=== PATIENT | female | born 1945 | race Caucasian/White ===

== ENCOUNTER → 2018-08-25 13:25 | Outpatient (CLI) | payer MEDICARE, OTHER, SELFPAY | PROVIDERS: PCP Internal Medicine; Visit Provider Internal Medicine | DX: M85.852 Other specified disorders of bone density and structure, left thigh (principal); Z78.0 Asymptomatic menopausal state; E11.9 Type 2 diabetes mellitus without complications; E07.9 Disorder of thyroid, unspecified; N28.9 Disorder of kidney and ureter, unspecified; Z85.3 Personal history of malignant neoplasm of breast; Z82.62 Family history of osteoporosis | CPT/HCPCS: 77080 ==

== ENCOUNTER → 2018-10-10 09:13 | Outpatient (CLI) | payer MEDICARE, OTHER, SELFPAY ==
[2018-10-10 10:22] LABS: Alanine Aminotransferase 22 IU/L (9-52); Aspartate Aminotransferase 27 IU/L (14-36); Cholesterol 137 mg/dL (140-199); HDL Cholesterol 63 mg/dL (40-60); LDL Cholesterol Calculated 62 mg/dL (<100); Triglycerides 59 mg/dL (35-150)
[2018-10-10 10:59] LABS: TSH w/ Reflex to FT4 0.22 uIU/mL (0.47-4.68)
[2018-10-10 11:41] LABS: Free T4, Direct Thyroxine 1.05 ng/dL (0.78-2.19)
== END ==
PROVIDERS: PCP Internal Medicine; Visit Provider Internal Medicine
DX: E78.2 Mixed hyperlipidemia (principal); R19.7 Diarrhea, unspecified; E03.9 Hypothyroidism, unspecified
CPT/HCPCS: 36415; 80061; 84439; 84443; 84450; 84460

== ENCOUNTER → 2018-11-12 16:25 | Outpatient (CLI) | payer MEDICARE, OTHER, SELFPAY | PROVIDERS: PCP Internal Medicine; Visit Provider Internal Medicine | DX: R19.7 Diarrhea, unspecified (principal) | CPT/HCPCS: 87177 ==

== ENCOUNTER → 2019-01-29 18:28 | Outpatient (CLI) | payer MEDICARE, OTHER, SELFPAY ==
--- NOTE | 2019-01-29 | DI.MRI.S_ITS ---
PROCEDURE: MR NECK WO CON INDICATIONS: UNSPECIFIED LACK OF COORDINATION TECHNIQUE: Noncontrast axial, sagittal and coronal T1 spin echo and STIR through the neck. COMPARISON: [facility], CT, PE STUDY (CTA CHEST), 10/21/2015, 13:46. [facility], MR, MR HEAD/BRAIN WO CON, 01/29/2019, 18:45. [facility], CT, HEAD WITHOUT CONTRAST, 11/25/2016, 11:32. FINDINGS: Image quality: There are motion artifacts degrading images. Soft tissue: No mass or cervical lymphadenopathy. Parotid glands and submandibular glands are normal. Thyroid gland is normal. Vessels: Carotid arteries are normal in caliber and demonstrate flow void. There is reversal of flow of the right jugular vein which is slightly prominent in caliber. Bones: Mild increased T2 marrow signal in C5, C6, C7 and T3 are most likely degenerative in nature. There is degenerative disc disease, severe at C5-C6 and C6-C7 causing severe central canal stenosis and indentation of the cervical cord. Degenerative disc disease is at T3-T4 causing moderate central canal stenosis. Sinuses: Sinuses and mastoids are clear. IMPRESSION: 1. No mass or cervical lymphadenopathy. 2. Severe degenerative disc disease at C5-C6 and C6-C7 causing severe central canal stenosis and indentation of the cervical cord. There is also moderate degenerative disc disease at T3-T4. MRI of the cervical spine and thoracic spine are suggested for followup evaluation. 3. There is reversal flow of the right jugular vein, uncertain etiology. Doppler ultrasound is recommended for further evaluation. Dictated by: Debbi De Souza M.D. on 01/30/2019 at 8:43 Approved by: Debbi De Souza M.D. on 01/30/2019 at 10:27
--- NOTE | 2019-01-29 18:33 | DI.MRI.S_ITS ---
PROCEDURE: MR HEAD/BRAIN WO CON INDICATIONS: UNSPECIFIED LACK OF CORDINATION TECHNIQUE: Non-contrast axial T1 spin echo, axial T2 fast spin echo, sagittal and axial FLAIR, coronal T2 fast spin echo, axial gradient echo, axial diffusion and ADC through the brain. COMPARISON: [facility] , MR, BRAIN W&W/O CONTRAST, 09/07/2006, 16:18. [facility], CT, HEAD WITHOUT CONTRAST, 11/25/2016, 11:32. [facility], MR, MR ORBITS FACE NECK WO CON, 01/29/2019, 19:02. FINDINGS: Image quality: Excellent. CSF spaces: Ventricles appear symmetric in size and shape. Basal cisterns are patent. No extra-axial fluid collections. Brain: No intracranial bleeds or mass effects. There is mild cerebral volume loss for age. There are foci of T2/FLAIR hyperintensity in periventricular and deep white matter , compatible with chronic small vessel ischemic changes. Brainstem appears normal. Diffusion-weighted images show no acute ischemic insults. No chronic ischemic insults. Normal intravascular flow voids are present. Skull and face: Calvarial bone marrow is normal in signal. Orbits are normal. Sinuses: Sinuses and mastoids are clear. IMPRESSION: 1. No acute intracranial abnormalities. 2. Foci of T2/FLAIR hyperintensity in periventricular and deep white matter, compatible with chronic small vessel ischemic changes. The differential diagnosis is demyelinating process. Recommend clinical correlation. 3. Mild age-appropriate cerebral volume loss. Dictated by: Debbi De Souza M.D. on 01/30/2019 at 8:41 Approved by: Debbi De Souza M.D. on 01/30/2019 at 10:12
== END ==
PROVIDERS: PCP Internal Medicine; Visit Provider Internal Medicine
DX: M54.2 Cervicalgia (principal); R27.9 Unspecified lack of coordination; M50.322 Other cervical disc degeneration at C5-C6 level; M51.34 Other intervertebral disc degeneration, thoracic region; M48.02 Spinal stenosis, cervical region
CPT/HCPCS: 70540; 70551

== ENCOUNTER → 2019-10-16 13:45 | Outpatient (CLI) | payer MEDICARE, OTHER, SELFPAY ==
[2019-10-16 14:57] LABS: Add Manual Diff / Slide Review NO; Basophils Absolute Auto 0 /uL (0-100); Basophils Percent Auto 0.4 % (0-2); Eosinophils Absolute Auto 100 /uL (0-450); Eosinophils Percent Auto 2.3 % (2-4); Hematocrit 37.1 % (36-46); Hemoglobin 12.9 g/dL (12.0-16.0); Lymphocytes Absolute Auto 1200 /uL (1100-4500); Lymphocytes Percent Auto 26.8 % (25-40); Mean Corpuscular HGB Conc 34.9 % (30-36); Mean Corpuscular Hemoglobin 32.7 PG (26-34); Mean Corpuscular Volume 93.5 fL (80-100); Monocytes Absolute Auto 400 /uL (0-900); Monocytes Percent Auto 9.5 % (3-14); Neutrophils Absolute Auto 2700 /uL (1500-7000); Platelet Count 271 X10^3/uL (150-400); Red Blood Cell Count 3.96 X10^6/uL (4.0-5.2); Red Cell Distribution Width 12.8 % (11.6-14.8); White Blood Cell Count 4.4 X10^3/uL (4.5-11.0)
== END ==
PROVIDERS: PCP Internal Medicine; Referring Provider Internal Medicine; Visit Provider Internal Medicine
DX: R53.83 Other fatigue (principal)
CPT/HCPCS: 36415; 85025

== ENCOUNTER → 2019-10-20 14:36 | Outpatient (CLI) | payer MEDICARE, OTHER, SELFPAY ==
--- NOTE | 2019-10-20 | DI.MRI.S_ITS ---
PROCEDURE: MR CERVICAL SPINE WO CON INDICATIONS: Spinal stenosis, cervical region TECHNIQUE: Noncontrast sagittal T1 spin echo and T2 fast spin echo, sagittal STIR, foraminal oblique sagittal T2 fast spin echo, and axial gradient echo or T2 fast spin echo through the cervical spine. COMPARISON: None. FINDINGS: Image quality: Excellent. Alignment and Curvature: Mild degenerative anterolisthesis of C5 on C6 and of C4 on C5. Bone Marrow: Marrow demonstrates normal overall signal. Spinal Cord: There is subtle cord signal abnormality at C5-C6 in a region with significant canal stenosis. No cerebellar tonsillar herniation. Paraspinous Soft Tissues: No paravertebral masses. Prevertebral soft tissues are normal in thickness. C2-C3: No canal stenosis or foraminal stenosis. C3-C4: No canal stenosis. Marked bilateral facet joint hypertrophy. Moderate to severe bilateral foraminal narrowing with flattening deformity on the bilateral exiting C4 nerve roots. C4-C5: No canal stenosis. Mild bilateral uncovertebral joint hypertrophy. Bilateral facet hypertrophy, marked on the left. Moderate right foraminal narrowing with flattening deformity on the exiting right C5 nerve root. Severe left foraminal narrowing with impingement on the left C5 nerve root. C5-C6: Severe chronic disc height loss. Diffuse posterior disc osteophyte complex, eccentric to the right with large uncovertebral joint osteophytes bilaterally. Severe canal stenosis and marked right lateral recess stenosis. Bilateral facet hypertrophy. Marked bilateral foraminal narrowing with bilateral C6 nerve root impingement. C6-C7: Severe chronic disc at loss. Diffuse posterior disc osteophyte complex with severe central canal stenosis. Bilateral uncovertebral joint hypertrophy. Bilateral facet hypertrophy. Severe bilateral foraminal narrowing with bilateral C7 nerve root impingement. C7-T1: No central canal stenosis. Bilateral facet hypertrophy. Moderate right foraminal narrowing with flattening deformity on the exiting right T1 nerve root. IMPRESSION: 1. Extensive diffuse spondylitic change. 2. At C5-C6, there is severe central canal stenosis and marked right lateral recess stenosis. There is associated cord signal abnormality. 3. At C6-C7, there is severe central canal stenosis. 4. Significant multilevel foraminal narrowing as described above, extending from C3-C4 through C7-T1. Findings include moderate to severe bilateral foraminal narrowing at C3-C4, severe left foraminal narrowing at C4-C5, marked bilateral foraminal narrowing at C5-C6, and severe bilateral foraminal narrowing at C6-C7. Dictated by: Hema Blanton M.D. on 10/22/2019 at 7:43 Approved by: Hema Blanton M.D. on 10/22/2019 at 7:56
== END ==
PROVIDERS: PCP Internal Medicine; Referring Provider Internal Medicine; Visit Provider Internal Medicine
DX: M48.02 Spinal stenosis, cervical region (principal); M47.812 Spondylosis without myelopathy or radiculopathy, cervical region
CPT/HCPCS: 72141

== ENCOUNTER → 2020-01-16 17:33 | Outpatient (CLI) | payer MEDICARE, OTHER, SELFPAY ==
--- NOTE | 2020-01-16 | DI.MRI.S_ITS ---
PROCEDURE: MR LUMBAR SPINE WO CON INDICATIONS: RIGHT LEG WEAKNESS TECHNIQUE: Noncontrast sagittal T1 spin echo and T2 fast echo, sagittal STIR, axial T1 and T2 fast spin echo through the lumbar spine. In cases with scoliosis, additional coronal T2 fast spin echo may be performed. COMPARISON: None. FINDINGS: Image quality: Excellent. Alignment and Curvature: Levoscoliosis noted. Bone Marrow: Multilevel degenerative endplate sclerosis and spurring. Diffuse facet arthropathy. No fracture. Multiple presumed vertebral body hemangiomas. Spinal Cord: Conus medullaris terminates at the L1 level. Visualized cord demonstrates normal signal and size. Paraspinous Soft Tissues: Subcentimeter renal foci, statistically cysts, although technically too small to characterize accurately and therefore nonspecific. There is nonspecific, dependent posterior subcutaneous soft tissue edema from level of L1-sacrum. L1-L2: No canal stenosis. Mild bilateral left greater than right foraminal narrowing. Partial effacement of both lateral recesses with bilaterally symmetric appearance. . L2-L3: No canal stenosis. Partial effacement of both lateral recesses with bilaterally symmetric appearance. No definite left foraminal stenosis. Mild right foraminal narrowing. L3-L4: Dorsal epidural lipomatosis, and mild canal narrowing. Partial effacement of both lateral recesses with bilaterally symmetric appearance. Mild left foraminal stenosis. Minimal right foraminal narrowing. L4-L5: Mild canal narrowing. Partial effacement of both lateral recesses with asymmetric appearance, left greater than right. Moderate left foraminal narrowing with nerve root compression. Mild right foraminal stenosis. L5-S1: Mild canal narrowing. Partial effacement of both lateral recesses with bilaterally symmetric appearance. Mild right foraminal narrowing with nerve root compression . Moderate to severe left foraminal stenosis with nerve root compression. IMPRESSION: Multilevel lumbar spondylosis, and levoscoliosis. Diffuse facet arthropathy Multilevel canal narrowing as above without high-grade stenosis. Diffuse, bilateral foraminal stenosis as detailed above by spinal level. Dictated by: Mike Henderson M.D. on 01/17/2020 at 8:11 Approved by: Mike Henderson M.D. on 01/17/2020 at 8:21
== END ==
PROVIDERS: PCP Internal Medicine; Referring Provider Physician Assistant
DX: R29.898 Other symptoms and signs involving the musculoskeletal system (principal); M47.816 Spondylosis without myelopathy or radiculopathy, lumbar region; M48.061 Spinal stenosis, lumbar region without neurogenic claudication; M48.07 Spinal stenosis, lumbosacral region; M41.9 Scoliosis, unspecified
CPT/HCPCS: 72148

== ENCOUNTER → 2020-07-16 13:06 | Outpatient (CLI) | payer MEDICARE, OTHER, SELFPAY ==
--- NOTE | 2020-07-16 13:09 | DI.RAD.S_ITS ---
PROCEDURE: FL BARIUM SWALLOW W SPEECH INDICATIONS: Dysphagia, unspecified COMPARISON: None. TECHNIQUE: Examination was conducted in conjunction with speech pathology per standard protocol. In the lateral projection, filming was performed of the patient swallowing. AP projection filming may also be performed with patient swallowing. COMPARISON: FINDINGS: Function: The oral preparatory phase appears normal, with proper containment. The subsequent oral propulsive phase, pharyngeal phase, and esophageal phase of swallowing also appear normal with all proffered substances. No laryngotracheal penetration or aspiration. No pathologic vallecular pooling. Limited evaluation of the esophagus demonstrated mild esophageal dysmotility with sporadic for forward motion of swallowed material. 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 No cervical esophageal webs. No Zenker's diverticulum. No strictures. IMPRESSION: 1. Small cricopharyngeal bar. 2. Mild esophageal dysmotility. Dictated by: Jenniffer Hollins MD, PhD on 07/16/2020 at 13:56 Approved by: Jenniffer Hollins MD, PhD on 07/16/2020 at 13:58
--- NOTE | 2020-07-17 13:34 | ST.SWALLOW ---
Visit Care Team Role Provider Type Jillian Jin MD Primary Care Provider Physician Specialty: Internal Medicine Address: [address] [place] [address], [id number] Email: [email or web address] Tran Meza PA-C Attending Provider Non-Staff Referring Provider Specialty: Medical Address: [address] [place] [address], [address], [place], [address] Email: Modified Barium Swallow Study FILAMENT TESTER Modified Barium Swallow Study Start: 07/16/20 16:43 Freq: Status: Active Protocol: Document 07/16/20 12:02 LNK (Rec: 07/17/20 12:28 LNK [email or web address]) Modified Barium Swallow Study Total Time Visit Start Time 13:30 Visit Stop Time 14:00 Total Visit Minutes [address] Alaniz, [facility] Neurology Reason for Referral dysphagia Setting Setting Outpatient Care Patient Information Identification Type Name,Date of Patient History Pt is a75 year old female seen for swallowing evaluation following C5-C7 ACDF surgery on 04/30/20. Pt reported that initially, following her surgery she was very swollen in the pharynx, causing swallowing problems and needed steroids to reduce the inflammation. She added that her swallowing has improved significantly; however, she reports a continuous pressure on/in her throat near the sternal notch and her scar. She describes the pressure as though there was something stuck in there. Additionally , she reported a sense of globus mid-chest after eating. She denies choking or coughing during meals. An MBSS was recommended to r/o oropharyngeal dysphagia. Subjective Observations Pt was seated in the fluoroscopy chair. Instructions and procedures were described for the pt who agreed to proceed. Patient Positioning Position View Lat-A/P Imaging Lateral View Textures Administered Trials Presented Thin Liquid via Spoon,Thin Liquid via Cup,Pudding Thick Liquid via Spoon,Regular Textures,Barium Tablet Oral Phase Source: MBSIMP (TM) (C) Bolus Specific Scoring Grid Lip Closure WFL Tongue Control During Bolus Hold WFL Bolus Prep/Mastication WFL Bolus Transport/Lingual Motion WFL A/P Lingual Propulsion Delay No Oral Residue WFL Residue Clearing WFL Nasal Regurgitation No Additional Oral Phase Observations OM examination indicated structures to be WFL and adequate for mastication. Pt reported that she usually takes small bites and chews her foods well before swallowing. Pharyngeal Phase Source: MBSIMP (TM) (C) Bolus Specific Scoring Grid Delayed Initiation of Pharyngeal Swallow No Soft Palate Elevation WFL Tongue Base Strength/Range of Motion Mild Impairment Residue Along the Tongue Base Yes Clearance of Residue Along Tongue Base WFL Laryngeal Elevation WFL Anterior Hyoid Movement WFL Epiglottic Range of Motion WFL Vallecular Residue Yes: Cleared with subsequent swallows Clearance of Vallecular Residue Mild Impairment Laryngeal Vestibular Closure WFL Pharyngeal Stripping Wave WFL Posterior Pharyngeal Wall Residue Yes Clearance of Posterior Pharyngeal Wall WFL Residue Upper Esophageal Sphincter Opening WFL Residue in the Pyriform Sinuses No Esophageal Clearance Upright Position Mild Impairment Pharyngoesophageal Backflow Observed No: Esophageal back-flow was observed Additional Pharyngeal Phase Observations Overall, the pt presented with a prompt swallow response, adequate hyolaryngeal elevation, good epiglottic inversion and airway protection. There was reduced linguapharyngeal contact resulting in valecullar pooling consistent across all trials. Subsequent swallows were needed to clear the valecullar residue. Otherwise, contraction of the posterior pharyngeal wall was WFL. There was no airway penetration or aspiration of the contrast observed. During the MBSS, the pt remarked that she felt there was something stuck ( pointing near sternum) and at mid-chest. AP view was then performed. A/P View Textures Administered Trials Presented Thin Liquid via Spoon, Mechanical Soft Textures A/P View Observations Esophageal Function Slowed Clearing,Poor Motility, Reverse Peristalsis Esophageal Clearance Upright Position Mild Impairment Additional Observations In screening the esophagus, it was noted that there was mild esophageal dysmotility with sporadic reverse peristalsis of swallowed material. A small CP bar was noted. Esophageal Observations Esophageal Function There was esophageal dysmotility observed with reverse movement of the swallowed material. Clinical Impressions Dysphagia Type esophageal dysphagia Findings Pt's MBSS indicated no oropharyngeal dysphagia. Recommend GI consult to follow up on esophageal observations . This dysmotility may contribute to pt's sense of something stuck in her throat as well as her reported a sense of globus mid chest after eating. Patient Appropriate for Therapy No Recommendations Treatment Plan Recommended Referrals Primary Care Physician,GI Consult Compensatory Strategies Recommendations Small Bites and Sips,Alternate Liquids/Solids
--- NOTE | 2020-07-22 17:05 | ST.IPDYTX ---
Visit Care Team Role Provider Type Jillian Jin MD Primary Care Provider Physician Specialty: Internal Medicine Address: [address] [place] [address], [id number] Email: [email or web address] Tran Meza PA-C Attending Provider Non-Staff Referring Provider Specialty: Medical Address: [address] [place] [address], [address], [place], [address] Email: GLASS SMOOTHER Dysphagia Treatment GLASS SMOOTHER Dysphagia Treatment Start: 07/22/20 16:50 Freq: Status: Active Protocol: Document 07/22/20 16:51 LNK (Rec: 07/22/20 17:04 LNK [email or web address]) Dysphagia Treatment Session Time Visit Start Time 15:30 Visit Stop Time 16:30 Total Visit Minutes 60 Setting Assessment Location Outpatient Care Visit Type Note Type Treatment Note Next Note Type Next Note Type Discharge Summary Patient Information Identification Type Name,Picture Treatment Treatment Activities No PO trials for therapy. Reviewed MBSS with pt. Reported to pt that her swallow study was WFL for her age. No obvious dysphagia observed ( See MBSS report dated 06/18/20) . Pt was able to view each swallow and the A-P view as well. Discussed my recommendation for GI referral . Pt requested that I send a copy of her report to her oncologist Dr. Bairon Solitario at the [facility]. Pt indicated that her questions had been answered satisfactorily. Pt does not need to return for ST services . Will discharge. Treatment Plan Appropriate for Continued Therapy No Therapy Recommendations Discharge Referrals/Other Recommended Referrals GI Consult
--- NOTE | 2020-07-22 17:08 | ST.IPDYTX ---
Visit Care Team Role Provider Type Jillian Jin MD Primary Care Provider Physician Specialty: Internal Medicine Address: [address] [place] [address], [address] Email: [email or web address] Tran Meza PA-C Attending Provider Non-Staff Referring Provider Specialty: Medical Address: [address] [place] [address], [address], [place], [address] Email: CERTIFIED BENCH JEWELER TECHNICIAN Dysphagia Treatment CERTIFIED BENCH JEWELER TECHNICIAN Dysphagia Treatment Start: 07/22/20 16:50 Freq: Status: Active Protocol: Document 07/22/20 16:51 LNK (Rec: 07/22/20 17:04 LNK [email or web address]) Dysphagia Treatment Session Time Visit Start Time 15:30 Visit Stop Time 16:30 Total Visit Minutes 60 Visit Information Plan of Care Dates 07/22/20-07/24/20 Setting Assessment Location Outpatient Care Visit Type Note Type Treatment Note Next Note Type Next Note Type Discharge Summary Patient Information Identification Type Name,Picture Treatment Treatment Activities No PO trials for therapy. Reviewed MBSS with pt. Reported to pt that her swallow study was WFL for her age. No obvious dysphagia observed ( See MBSS report dated 06/18/20) . Pt was able to view each swallow and the A-P view as well. Discussed my recommendation for GI referral . Pt requested that I send a copy of her report to her oncologist Dr. Bairon Solitario at the [facility]. Pt indicated that her questions had been answered satisfactorily. Pt does not need to return for ST services . Will discharge. Treatment Plan Appropriate for Continued Therapy No Therapy Recommendations Discharge Referrals/Other Recommended Referrals GI Consult
== END ==
PROVIDERS: PCP Internal Medicine; Referring Provider Physician Assistant; Visit Provider Physician Assistant
DX: R13.10 Dysphagia, unspecified (principal); K22.4 Dyskinesia of esophagus
CPT/HCPCS: 74230; 92611

== ENCOUNTER 2020-07-22 15:30 | Outpatient (RCR) | payer MEDICARE, OTHER, SELFPAY ==
--- NOTE | 2020-06-16 14:03 | ST.OPIE ---
Visit Care Team Role Provider Type Jillian Jin MD Primary Care Provider Physician Specialty: Internal Medicine Address: [address] [place] [address], [id number] Email: [email or web address] Nahed Rojas PA-C Attending Provider Non-Staff Referring Provider Specialty: Neurology Address: [address] [place], [address] Email: Speech-Language Pathology Initial Evaluation SLD INCLUSION TEACHER Clinical Swallow Evaluation Start: 06/16/20 11:32 Freq: Status: Active Protocol: Document 06/16/20 11:32 LNK (Rec: 06/16/20 14:02 LNK [email or web address]) Clinical Swallow Evaluation Session Time Visit Start Time 11:30 Visit Stop Time 12:30 Total Visit Minutes 60 Visit Information Visit Number 1 Referral Referring Provider Jillian Jin MD Setting Assessment Location Outpatient Care Visit Type Note Type Initial evaluation Patient Information Identification Type Name,Picture History Pt is a75 year old female seen for swallowing evaluation following C5-C7 ACDF surgery on 04/30/20. Pt reported that initially, following her surgery she was very swollen in the pharynx, causing swallowing problems and needed steroids to reduce the inflammation. She added that her swallowing has improved significantly; however, she reports a continuous pressure on/in her throat near the sternal notch and her scar. She describes the pressure as though there was something stuck in there. Reported by Patient Location Neck Other Symptoms Food gets stuck Current Diet Regular,Thin liquids Objective Assessment Mental Status Alert,Responsive,Cooperative Oral Integrity WFL Dentition Within normal limits Lip Function Within normal limits Observation of Lips at Rest Symmetrical Lip Retraction Within normal limits Tongue Function Within normal limits Jaw Function Within normal limits Food and Liquid Trials Oral Phase Comments No PO trials as pt described her symptoms as pharyngeal. OM examination indicated structures to be WFL and adequate for mastication. Pt reported that she usually takes small bites and chews her foods well before swallowing. Pharyngeal Phase Comments Hyolaryngeal elevation for dry swallow was adequate with good movement of the hyoid. Pt 's cough and throat clear were WFL. Pt reported that she continues to need to use her neck brace. Additionally, she noted that when she has her neck brace on, she has more difficulty with her swallow of liquids only, resulting in a cough/throat clear. She reports no problem with solid foods. As pt describes pressure within her pharynx, and something stuck, an instrumental assessment via MBSS is recommended to r/o pharyngeal dysphagia. Fatigue/Endurance Endurance WNL Comment Pt education re: swallowing physiology was provided to the pt via computer generated video. Structures and swallow mechanism was described with areas on concern/possible dysfunction pointed out to the pt. Pt was appreciative. Findings Swallowing Function Dysphagia unspecified Comment Recommend MBSS to r/o pharyngeal dysphagia Impact on Safety and Functioning No limitations Recommendations Instrumental Assessment Yes Frequency Tx pending MBSS results Education Patient/Caregiver Education Described results of evaluation,Patient expressed understanding of evaluation, Patient expressed agreement with goals & treatment plans, Patient expressed understanding of safety precautions
--- NOTE | 2020-07-29 16:28 | ST.IPDYTX ---
Visit Care Team Role Provider Type Jillian Jin MD Primary Care Provider Physician Specialty: Internal Medicine Address: [address] [place] [address], [address] Email: [email or web address] Nahed Rojas PA-C Attending Provider Non-Staff Referring Provider Specialty: Neurology Address: [facility] [place], [address] Email: PLASTICS REPAIRER Dysphagia Treatment PLASTICS REPAIRER Dysphagia Treatment Start: 06/16/20 11:32 Freq: Status: Active Protocol: Document 07/22/20 16:19 LNK (Rec: 07/29/20 16:27 LNK [email or web address]) Dysphagia Treatment Session Time Visit Start Time 15:30 Visit Stop Time 16:15 Total Visit Minutes 45 Visit Information Visit Number 2 Setting Assessment Location Outpatient Care Visit Type Note Type Treatment Note Next Note Type Next Note Type Treatment Note Patient Information Identification Type Name,Picture Subjective Observations Pt was on time for her appointment Treatment Treatment Activities No PO trials were administered . a computer generated video of a normal swallow was viewed with This PLASTICS REPAIRER and student PLASTICS REPAIRER Cammie Rasheed. Following the review, the pt's recent MBS was reviewed in slow motion with areas of concern reviewed and discussed with the pt. After her MBSS was finished, there were many questions brought by the pt that were answered to her satisfaction. The pt does not need swallowing therapy and was discharged from ST services. Assessment Patient Response to Treatment Excellent Diet Recommendations Recommendations Continue Current Diet Aspiration Precautions Additional Precautions Aspiration precautions were discussed with the pt. Treatment Plan Appropriate for Continued Therapy No Therapy Recommendations Discharge from ST services
== END 2020-11-11 08:38 | disposition home or self-care (01) ==
LOC: SP 15:30
PROVIDERS: PCP Internal Medicine; Referring Provider Physician Assistant Surgical; Visit Provider Physician Assistant Surgical
DX: R13.10 Dysphagia, unspecified (principal); M48.02 Spinal stenosis, cervical region
CPT/HCPCS: 92526; 92610

== ENCOUNTER → 2021-11-18 09:33 | Outpatient (CLI) | payer MEDICARE, OTHER, SELFPAY ==
--- NOTE | 2021-11-18 | DI.CT.S_ITS ---
PROCEDURE: CT CERVICAL SPINE WO CON INDICATIONS: S/P cspine fusion/Spinal stenosis cervical region TECHNIQUE: Noncontrast 3 mm thick sections acquired from the skull base to the T4 level. Sagittal and coronal reformats were then constructed. For radiation dose reduction, the following was used: automated exposure control, adjustment of mA and/or kV according to patient size. COMPARISON: No prior cervical spine CTs are available for review at the time of this dictation. FINDINGS: Image quality: This examination is somewhat limited by quantum mottle artifact. Bones: No fractures or dislocations. Visualized superior ribs are intact. Anterior fixation hardware can be seen C5 through C7. The right C7 screw is fractured. The screws are otherwise unremarkable and appear well placed. Disc spacers are seen at C5-C6 and at C6-C7. The fusion plate is well seated. Focal degenerative change is seen involving the C1-C2 interface anteriorly. There is calcification with partial fusion seen at the C2-C3 level. At C4-C5, there is calcification seen along the disc level, with partial vertebral body fusion. The left C2-C3 and C4-C5 facet joints are fused, as seen on series 5, image 21. Minimal anterolisthesis is seen at C6-C7. Soft tissues: Prevertebral soft tissues are normal in thickness. No paravertebral hematomas. No apical pneumothoraces. IMPRESSION: C5 through C7 fixation hardware, with the right C7 screw fractured, yet otherwise appearing unremarkable. Multiple levels of degenerative change are seen, with bony fusion changes seen. Dictated by: Alex Bahena M.D. on 11/18/2021 at 9:22 Approved by: Alex Bahena M.D. on 11/18/2021 at 9:25
== END ==
PROVIDERS: PCP Internal Medicine; Referring Provider Nurse Practitioner; Visit Provider Nurse Practitioner
DX: M47.812 Spondylosis without myelopathy or radiculopathy, cervical region (principal); M48.02 Spinal stenosis, cervical region; T84.216A Breakdown (mechanical) of internal fixation device of vertebrae, initial encounter; Z98.1 Arthrodesis status
CPT/HCPCS: 72125

== ENCOUNTER → 2022-02-08 15:16 | Outpatient (CLI) | payer MEDICARE, OTHER, SELFPAY ==
--- NOTE | 2022-02-08 15:17 | DI.MRI.S_ITS ---
PROCEDURE: MR ABDOMEN WO/W CON INDICATIONS: Gvob-Iojl-Ynxh syndrome;Renal Mass TECHNIQUE: Coronal HASTE through abdomen and pelvis; axial 2D FLASH in- and dzh-ly-[id number] (with and without fat saturation), and breath-hold T2 FSE from the hepatic dome to the bottom of the kidneys. Coronal HASTE MR urogram of kidneys and bladder. Dynamic coronal VIBE during IV gadolinium administration; postgadolinium axial VIBE or 2D FLASH with fat saturation from the hepatic dome through the kidneys. COMPARISON: [facility], CT, PE STUDY (CTA CHEST), 10/21/2015, 13:46. Outside Film, MR, MR ABDOMEN WITH/WITHOUT CONTRAST, 11/11/2015, 19:22. Outside Film, MR, MR ABDOMEN WITH/WITHOUT CONTRAST, 02/06/2019, 16:40. FINDINGS: Image quality: Good. Genitourinary system: Scarring at the inferior pole of the left kidney from prior wedge resection. No solid mass identified. The previously seen suspected solid mass at the posterior midportion of the left kidney is no longer appreciated. Multiple bilateral T2 hyperintense renal cysts. No hydronephrosis. Other solid organs: Liver: T2 hyperintense focus in the right lobe of the liver is unchanged. Gallbladder: Not distended. Bile ducts: No dilatation. Pancreas: No peripancreatic fluid collection. Spleen: No splenomegaly. Adrenal glands: No nodule. Nodes and vessels: No enlarged lymph nodes. No aortic aneurysm. Bowel and peritoneum: No dilated loops of bowel identified. The appendix is not dilated. Stomach is not distended. Probable small hiatal hernia. Lung bases: No pleural effusion. Bones and soft tissues: L1 T2 hyperintense focus is unchanged. 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 IMPRESSION: 1. Stable left kidney inferior wedge resection. 2. No suspicious renal enhancing mass identified. Multiple T2 hyperintense cysts bilaterally. 3. No hydronephrosis. Renal protocol CT could be considered for further evaluation or as a follow-up. Dictated by: Young Puckett M.D. on 02/08/2022 at 18:11 Approved by: Young Puckett M.D. on 02/08/2022 at 18:27
== END ==
PROVIDERS: PCP Internal Medicine; Referring Provider Physician Assistant; Visit Provider Physician Assistant
DX: N28.89 Other specified disorders of kidney and ureter (principal); Q87.89 Other specified congenital malformation syndromes, not elsewhere classified; N28.1 Cyst of kidney, acquired
CPT/HCPCS: 74183

== ENCOUNTER → 2022-03-10 10:17 | Outpatient (CLI) | payer MEDICARE, OTHER, SELFPAY | PROVIDERS: PCP Internal Medicine; Referring Provider Internal Medicine; Visit Provider Internal Medicine | DX: Z13.820 Encounter for screening for osteoporosis; M85.852 Other specified disorders of bone density and structure, left thigh; Z78.0 Asymptomatic menopausal state; E21.3 Hyperparathyroidism, unspecified; Z87.311 Personal history of (healed) other pathological fracture; Z85.528 Personal history of other malignant neoplasm of kidney | CPT/HCPCS: 77080 ==

== ENCOUNTER → 2022-05-12 14:27 | Outpatient (CLI) | payer MEDICARE, OTHER, SELFPAY ==
[2022-05-12 16:22] LABS: BUN Creatinine Ratio 22.8 (6-22); Blood Urea Nitrogen 18 mg/dL (7-17); Calcium 8.7 mg/dL (8.4-10.2); Carbon Dioxide 30 mmol/L (22-32); Chloride 100 mmol/L (98-107); Cholesterol 157 mg/dL (140-199); Estimated Glomerular Filt Rate > 60 mL/min (>60); Glucose 266 mg/dL (80-110); HDL Cholesterol 75 mg/dL (40-60); HEMOLYSIS < 15 (0-50); LDL Cholesterol Calculated 60 mg/dL (<100); Sodium 135 mmol/L (137-145); Triglycerides 109 mg/dL (35-150)
[2022-05-12 16:33] LABS: Free T4, Direct Thyroxine 1.12 ng/dL (0.78-2.19)
== END ==
PROVIDERS: PCP Internal Medicine; Referring Provider Internal Medicine; Visit Provider Internal Medicine
DX: E10.65 Type 1 diabetes mellitus with hyperglycemia (principal)
CPT/HCPCS: 36415; 80048; 80061; 83036; 84439; 84443

== ENCOUNTER → 2022-05-12 15:22 | Outpatient (CLI) | payer MEDICARE, OTHER, SELFPAY ==
--- NOTE | 2022-05-12 15:25 | DI.RAD.S_ITS ---
PROCEDURE: XR CHEST 2V INDICATIONS: Cough TECHNIQUE: 2 views of the chest were acquired. COMPARISON: [facility], , CHEST 2 VIEW, 10/20/2015, 12:25. FINDINGS: Surgical changes and devices: Low anterior cervical fusion. Lungs and pleura: Mild patchy opacity within the right medial lung base. No pleural effusions or pneumothorax. Mediastinum: Mediastinal contours are normal. Heart size is normal. Bones and chest wall: No suspicious bony abnormalities. Soft tissues appear unremarkable. IMPRESSION: Right lung base pneumonia. Continued plain film surveillance is recommended to ensure resolution, and to exclude underlying or central malignancy. Dictated by: Fransico Esquivel M.D. on 05/12/2022 at 16:46 Approved by: Fransico Esquivel M.D. on 05/12/2022 at 16:47
== END ==
PROVIDERS: PCP Internal Medicine; Referring Provider Internal Medicine; Visit Provider Internal Medicine
DX: J18.9 Pneumonia, unspecified organism (principal); R05.9 Cough, unspecified
CPT/HCPCS: 71046

== ENCOUNTER 2023-03-18 08:45 | Emergency (ER) | payer MEDICARE, OTHER, SELFPAY ==
[2023-03-18 08:49] VITALS: BP 183/83; PULSE 64; RESP 16; TEMP 36.6; O2SAT 97; BMI 27.8
--- NOTE | 2023-03-18 10:30 | ED.EAR ---
HPI - Ear Problem General Chief complaint: Ear Stated complaint: feels like water in ear/ear itchy T-7 Time Seen by Provider: 03/18/23 09:47 History of Present Illness HPI Narrative: A 77-year-old type 1 diabetic complaining of right ear itchiness and a sense of fullness that she is had for at least a week. She is not had fevers swelling or pain. Has had a little bit of nasal discharge which has been clear. Blood sugars have been well controlled. She is not seen her primary care provider about this has not had any changes in her hearing. Related Data Home Medications Medication Instructions Recorded Confirmed aspirin 81 mg chewable tablet 81 mg PO QDAY ##0 11/25/16 05/12/22 atorvastatin 20 mg tablet 20 mg PO DAILY 11/13/20 05/12/22 insulin aspart U-100 100 unit/mL 1 sliding scale dose SUBCUT 11/13/20 05/12/22 subcutaneous cartridge (Novolog USEASDIRECTD PenFill U-100 Insulin aspart) levothyroxine 50 mcg capsule 50 mcg PO DAILY 11/13/20 05/12/22 Previous Rx's Medication Instructions Recorded azithromycin 250 mg tablet See Rx Instructions PO .COMPLEX #6 05/12/22 tabs benzonatate 100 mg capsule 100 mg PO BID PRN cough #20 caps 05/12/22 [id number]-[id number]-GA-[id number] 3.3 3 drp EAR-RIGHT QID #10 mL 03/18/23 mg-3 mg-10 mg-0.5 mg/mL ear drops,susp (Cortisporin-TC) Allergies Allergy/AdvReac Type Severity Reaction Status Date / Time ciprofloxacin [From Cipro] Allergy Tendonitis Verified 05/12/22 15:00 fluticasone [From Flonase] Allergy headaches Verified 05/12/22 15:00 levofloxacin [From Levaquin] Allergy tendonitis Verified 05/12/22 15:00 MIACIN Allergy Unknown Uncoded 05/12/22 15:00 Patient History Medical History (Updated 03/18/23 @ 10:30 by Jeff Ward MD) Swelling of left hand Left hand pain Social History Smoking Status: Never smoker Smoking Status: Never smoker Exam Initial Vital Signs Initial Vital Signs: Vital Signs Temperature 97.9 F 03/18/23 08:49 Pulse Rate 64 03/18/23 08:49 Respiratory Rate 16 03/18/23 08:49 Blood Pressure 183/83 H 03/18/23 08:49 Pulse Oximetry 97 03/18/23 08:49 Oxygen Delivery Method Room Air 03/18/23 08:49 Const General: No acute distress HENMT Head: normal to inspection Ears: hearing grossly normal bilaterally, external ears normal, TM's normal bilaterally, mastoids normal and no periauricular adenopathy Nose: external nose normal and nares normal Mouth: oral mucosae normal and oropharynx normal HENMT Other: Right canal is mildly swollen. There is no cerumen impaction on either ear. Right canal has mild tenderness. Skin General: no rashes or lesions noted Neuro General: patient alert and patient oriented x3 Course Vital Signs Vital signs: Vital Signs - 8 hr 03/18/23 08:49 Temperature 97.9 F Pulse Rate 64 Respiratory Rate 16 Blood Pressure 183/83 H Pulse Oximetry 97 Oxygen Delivery Method Room Air Medical Decision Making MDM Narrative Medical decision making narrative: 77-year-old type 1 diabetic with a right ear complaint. Considered otitis externa and eczema, given the Rad little swelling there and this is an acute issue I am concerned that there is a mild infection. Does not have mastoiditis does not have otitis media. I started her on Cortisporin. Recommended primary care follow-up soon. Discharge Plan Departure Patient Disposition: Home Clinical Impression: Otitis externa Qualifiers: Otitis externa type: unspecified type Chronicity: acute Laterality: right Qualified Code(s): H60.501 - Unspecified acute noninfective otitis externa, right ear Activity Restrictions/Additional Instructions: Use the prescribed drops in your right ear. Try your best not to be putting things in your ear. If you are having increasing pain swelling or other acute symptoms seek medical care immediately. Follow-up with your primary care provider when able. Prescriptions: New Cortisporin-TC 3.3-3-10-0.5 mg/mL drops,suspension 3 drp EAR-RIGHT QID Qty: 10 0RF No Action levothyroxine 50 mcg capsule 50 mcg PO DAILY atorvastatin 20 mg tablet 20 mg PO DAILY insulin aspart U-100 [Novolog PenFill U-100 Insulin] 100 unit/mL cartridge 1 sliding scale dose SUBCUT USEASDIRECTD benzonatate 100 mg capsule 100 mg PO BID PRN (Reason: cough) Qty: 20 0RF aspirin 81 MG tablet,chewable 81 mg PO QDAY Qty: 0 azithromycin 250 mg tablet See Rx Instructions PO .COMPLEX Qty: 6 0RF Rx Instructions: For 250 mg dose pack: take 500 mg today (day 1), then 250 mg for 4 days (days 2-5) PO Referrals: Edilia Silver PA-C [Primary Care Provider] - Stand Alone Forms: Patient Portal/API
[2023-03-18 10:37] VITALS: BP 184/72; PULSE 55; RESP 16; TEMP 36.6; O2SAT 99
== END 2023-03-18 10:38 | disposition home or self-care (01) ==
PROVIDERS: Emergency Provider Emergency Medicine; PCP Physician Assistant
DX: H60.501 Unspecified acute noninfective otitis externa, right ear (principal)
CPT/HCPCS: 99281; 99283

== ENCOUNTER → 2023-06-25 09:39 | Outpatient (CLI) | payer MEDICARE, OTHER, SELFPAY ==
[2023-06-25 10:08] LABS: Appearance Urine UA SL CLOUDY; Bilirubin Urine UA NEGATIVE (NEGATIVE); Color Urine UA YELLOW; Glucose Urine UA NEGATIVE (Negative); Ketones Urine UA NEGATIVE (NEGATIVE); Leukocyte Esterase Urine UA 2+ (NEGATIVE); Nitrite Urine UA NEGATIVE (Negative); Occult Blood Urine UA 2+ (Negative); Protein Urine UA NEGATIVE (Negative); Urobilinogen Urine UA 0.2 E.U./dL (0.2)
[2023-06-25 10:10] LABS: pH Urine UA 6.5 (4.5-8.0)
[2023-06-25 10:15] LABS: Bacteria Urine Moderate (10-30); Culture Indicated Urine Specimen Cultured; RBC Urine 1-5/HPF (0-5/HPF); Squamous Epithelial Cell Urine None Seen (0-5/HPF); Urine Volume 10mL (spun); WBC Urine 10-30/HPF (0-5/HPF)
== END ==
PROVIDERS: PCP Physician Assistant; Visit Provider Physician Assistant
DX: R30.0 Dysuria (principal)
CPT/HCPCS: 81001; 87077; 87086; 87186

== ENCOUNTER → 2023-07-02 10:54 | Outpatient (CLI) | payer MEDICARE, OTHER, SELFPAY | PROVIDERS: PCP Physician Assistant; Visit Provider Registered Nurse | DX: R30.0 Dysuria (principal) | CPT/HCPCS: 87086 ==

== ENCOUNTER → 2023-09-22 11:52 | Outpatient (CLI) | payer MEDICARE, OTHER, SELFPAY ==
[2023-09-22 12:51] LABS: Influenza A - CEPHEID Flu A NEGATIVE (NEGATIVE); Influenza B - CEPHEID Flu B NEGATIVE (NEGATIVE); Respiratory Syncytial Virus Negative (Negative)
[2023-09-22 13:03] LABS: COVID-19 CEPHEID 4-PLEX PCR Negative (Negative)
== END ==
PROVIDERS: PCP Physician Assistant; Visit Provider Nurse Practitioner Family
DX: R05.1 Acute cough (principal)
CPT/HCPCS: 0241U

== ENCOUNTER → 2023-09-22 12:07 | Outpatient (CLI) | payer MEDICARE, OTHER, SELFPAY ==
--- NOTE | 2023-09-22 12:08 | DI.RAD.S_ITS ---
PROCEDURE: XR CHEST 2V INDICATIONS: Cough TECHNIQUE: 2 views of the chest were acquired. COMPARISON: [facility], , XR CHEST 2V, 05/12/2022, 15:23. [facility], , CHEST 2 VIEW, 10/20/2015, 12:25. FINDINGS: Surgical changes and devices: Surgical clips projecting over the chest. ACDF hardware. Lungs and pleura: Lungs are clear. No pleural effusions or pneumothorax. Mediastinum: Mediastinal contours are normal. Heart size is normal. Bones and chest wall: No suspicious bony abnormalities. Mild dextrocurvature of the thoracic spine. Soft tissues appear unremarkable. IMPRESSION: No acute cardiopulmonary abnormality is seen. Dictated by: Benjie Boland M.D. on 09/22/2023 at 14:47 Approved by: Benjie Boland M.D. on 09/22/2023 at 14:50
== END ==
LOC: RAD 12:08
PROVIDERS: PCP Physician Assistant; Referring Provider Nurse Practitioner Family; Visit Provider Nurse Practitioner Family
DX: R05.1 Acute cough (principal)
CPT/HCPCS: 0241U; 71046

== ENCOUNTER 2023-12-23 12:48 | Emergency (ER) | payer MEDICARE, OTHER, SELFPAY ==
[2023-12-23 13:07] VITALS: BP 127/58; PULSE 60; RESP 16; TEMP 36.4; O2SAT 98; BMI 28.3
--- NOTE | 2023-12-23 13:11 | DI.RAD.S_ITS ---
PROCEDURE: XR KNEE LT 3V INDICATIONS: L knee patella pain TECHNIQUE: 3 views of the knee were acquired. COMPARISON: None. FINDINGS: Bones: No fractures or dislocations. Tricompartment degenerative arthritis, severe in the patellofemoral compartment. No suspicious bony lesions. Soft tissues: Ipfr-sm-ljdgokyq joint effusion. No suspicious soft tissue calcifications. IMPRESSION: Tricompartment degenerative arthritis, severe in the patellofemoral compartment. No acute bony abnormality. Dictated by: Hema Blanton M.D. on 12/23/2023 at 14:07 Approved by: Hema Blanton M.D. on 12/23/2023 at 14:07
--- NOTE | 2023-12-23 13:37 | ED_ITS ---
HPI - Extremity Injury (Lower) General Chief Complaint: Extremity Injury, Lower Stated Complaint: lft knee px Time Seen by Provider: 12/23/23 13:14 History of Present Illness HPI Narrative: 78-year-old female presents for left knee pain. She states that she has been doing chair yoga. This morning she got up out of bed at felt like her knee was very unstable and like it was going to give out. Walks with a cane at baseline. She put a knee brace on in decided to present for evaluation. Has known severe arthritis in her left leg, and states that several years ago she was recommended to have an you replacement, but due to multiple factors ongoing in her life at that time she declined replacement. She has not followed up with Orthopedics in many years. Related Data Home Medications Medication Instructions Recorded Confirmed aspirin 81 mg chewable tablet 81 mg PO QDAY ##0 11/25/16 09/22/23 atorvastatin 20 mg tablet 20 mg PO DAILY 11/13/20 09/22/23 insulin aspart U-100 100 unit/mL 1 sliding scale dose SUBCUT 11/13/20 09/22/23 subcutaneous cartridge (Novolog USEASDIRECTD PenFill U-100 Insulin aspart) levothyroxine 50 mcg capsule 50 mcg PO DAILY 11/13/20 09/22/23 Previous Rx's Medication Instructions Recorded phenazopyridine 200 mg tablet 200 mg PO TID PRN pain 6 doses #6 06/25/23 (Pyridium) tabs benzonatate 200 mg capsule 200 mg PO BID PRN cough #28 caps 09/22/23 Allergies Allergy/AdvReac Type Severity Reaction Status Date / Time ciprofloxacin [From Cipro] Allergy Tendonitis Verified 09/22/23 11:47 fluticasone [From Flonase] Allergy headaches Verified 09/22/23 11:47 levofloxacin [From Levaquin] Allergy tendonitis Verified 09/22/23 11:47 cefdinir AdvReac Severe Diarrhea Verified 09/22/23 11:47 MIACIN Allergy Unknown Uncoded 09/22/23 11:47 Patient History Medical History Swelling of left hand Left hand pain Social History Smoking Status: Never smoker Smoking Status: Never smoker Exam Initial Vital Signs Initial Vital Signs: Vital Signs Temperature 97.5 F L 12/23/23 13:07 Pulse Rate 60 08/30/24 13:07 Respiratory Rate 16 12/23/23 13:07 Blood Pressure 127/58 L 12/23/23 13:07 Pulse Oximetry 98 12/23/23 13:07 Oxygen Delivery Method Room Air 12/23/23 13:07 Const: Awake, alert, no acute distress, nontoxic appearing MSK: Atraumatic, no deformity, full range of motion, generalized tenderness over L knee joint Skin: Warm, Dry, intact, no rashes Neuro: AO x3, CN II-XII grossly intact, moves all extremities Course Orders Ordered: ED Orders 12/23/23 13:11 XR knee LT 3V Stat Vital Signs Vital signs: Vital Signs - 8 hr 12/23/23 13:07 Temperature 97.5 F L Pulse Rate 60 Respiratory Rate 16 Blood Pressure 127/58 L Pulse Oximetry 98 Oxygen Delivery Method Room Air MDM - Extremity Injury (Lower) Imaging Data Extremity x-ray #1: Radiologist's Impression: PROCEDURE: XR KNEE LT 3V INDICATIONS: L knee patella pain TECHNIQUE: 3 views of the knee were acquired. COMPARISON: None. FINDINGS: Bones: No fractures or dislocations. Tricompartment degenerative arthritis, severe in the patellofemoral compartment. No suspicious bony lesions. Soft tissues: Josl-fe-eknajpzf joint effusion. No suspicious soft tissue calcifications. IMPRESSION: Tricompartment degenerative arthritis, severe in the patellofemoral compartment. No acute bony abnormality. Dictated by: Hema Blanton M.D. on 12/23/2023 at 14:07 Approved by: Hema Blanton M.D. on 12/23/2023 at 14:07 [facility] Narrative Medical decision making narrative: Atraumatic left knee pain. Patient feels like her joint is unstable and like her knee may give out. X-ray imaging shows severe degenerative changes, no other acute findings. Patient counseled on her x-ray imaging findings. Recommended orthopedic follow up again for any additional testing or treatments that may be needed. She declined any Sam wraps or knee immobilizers here, stating that her current knee brace is helping and she has in his started number of medical devices at home that she can use for support. Dawit jin also counseled for help with the pain control. Discharge Plan Departure Patient Disposition: Home Clinical Impression: Acute knee pain Instructions: DI for Knee Pain Activity Restrictions/Additional Instructions: Your x-ray imaging today showed degenerative changes of your knee, but no fractures or dislocations. I do recommend following up with an orthopedic doctor, a referral number has been provided. Take Tylenol as needed for pain, keep wearing your supportive device, and I also recommend using Voltaren gel for pain. Prescriptions: No Action benzonatate 200 mg capsule 200 mg PO BID PRN (Reason: cough) Qty: 28 0RF levothyroxine 50 mcg capsule 50 mcg PO DAILY atorvastatin 20 mg tablet 20 mg PO DAILY insulin aspart U-100 [Novolog PenFill U-100 Insulin] 100 unit/mL cartridge 1 sliding scale dose SUBCUT USEASDIRECTD phenazopyridine [Pyridium] 200 mg tablet 200 mg PO TID PRN (Reason: pain) Qty: 6 0RF aspirin 81 MG tablet,chewable 81 mg PO QDAY Qty: 0 Referrals: Mary King MD [Physician] - Edilia Silver PA-C [Primary Care Provider] - Stand Alone Forms: Patient Portal/API
== END 2023-12-23 14:20 | disposition home or self-care (01) ==
PROVIDERS: Emergency Provider Emergency Medicine; PCP Physician Assistant
DX: M25.562 Pain in left knee (principal); Z79.899 Other long term (current) drug therapy
CPT/HCPCS: 73562; 99283